=== PATIENT | male | born 2000 | race Caucasian/White ===

== ENCOUNTER 2018-02-14 21:39 | Emergency (ER) | payer BC ==
[2018-02-14 21:58] VITALS: BP 146/77
[2018-02-14] MEDS ORDERED: Lidocaine 1% 10 ML MDV INJECT ONE (22:23)
--- NOTE | 2018-02-14 22:27 | EDM.PDOC ---
ED HPI GENERAL MEDICAL PROBLEM - General Chief Complaint: Laceration Stated Complaint: RIGHT INDEX FINGER INJURIED Time Seen by Provider: 02/14/18 22:10 Source of Information: Reports: Patient History Limitations: Reports: No Limitations - History of Present Illness INITIAL COMMENTS - FREE TEXT/NARRATIVE: Patient is a 17-year-old male presents ED complaining of a laceration to the ventral aspect of the right index finger along the proximal phalanx. This measures approximately 2 cm in length. Patient states while wiping off a knife that was used to fillet fish he actually cut himself. Pain is minimal. Bleeding has subsided with direct pressure. He has no sensorimotor deficits distally. Tetanus status up-to-date. - Related Data Allergies Allergy/AdvReac Type Severity Reaction Status Date / Time shellfish derived Allergy Mild Verified 02/14/18 21:58 Sensitivity as reported by Mother Home Meds: Home Meds . [No Known Home Meds] 02/14/18 [History] Past Medical History - Past Health History Medical/Surgical History: Denies Medical/Surgical History Social & Family History - Tobacco Use Smoking Status *Q: Never Smoker - Caffeine Use Caffeine Use: Reports: Energy Drinks, Soda - Recreational Drug Use Recreational Drug Use: No ED ROS GENERAL - Review of Systems Review Of Systems: ROS reveals no pertinent complaints other than HPI. ED EXAM, SKIN/RASH Exam: See Below Exam Limited By: No Limitations General Appearance: Alert, WD/WN, No Apparent Distress Ears: Hearing Grossly Normal Nose: Normal Inspection Throat/Mouth: Normal Voice, No Airway Compromise Neck: Normal Inspection, Supple Respiratory/Chest: No Respiratory Distress, No Accessory Muscle Use Cardiovascular: Normal Peripheral Pulses, Regular Rate, Rhythm Peripheral Pulses: 4+: Radial (R) Extremities: Other (Laceration measuring 2 cm subcutaneous to the right index finger along the ventral aspect proximal phalanx. Bleeding controlled. No sensory motor deficits distally. Able to fully flex the affected finger against resistance with no discomfort.) Neurological: Alert, Oriented, CN II-XII Intact, Normal Cognition, No Motor/ Sensory Deficits Psychiatric: Normal Affect, Normal Mood Skin: Warm, Dry, Normal Color ED SKIN PROCEDURES - Laceration/Wound Repair Right Finger Lac/Wound length In cm: 2 Appearance: Subcutaneous, Clean Distal NVT: Neuro & Vascular Intact, No Tendon Injury Anesthetic Type: Local Local Anesthesia - Lidocaine (Xylocaine): 1% Plain Local Anesthetic Volume: 4cc Skin Prep: Chlorhexidine (Hibiciens), Saline, Sterile Drape Exploration/Debridement/Repair: Wound Explored, In a Bloodless Field, Explored to Base, No Foreign Material Found Closed with: Sutures Suture Size: 4-0 # of Sutures: 3 Suture Type: Prolene Drain Placement: No Sterile Dressing Applied: Nurse Tetanus Status Addressed: Yes Complications: No Course - Vital Signs Last Recorded V/S: Last Vital Signs Temp 99.1 F 02/14/18 21:55 Pulse 71 02/14/18 21:55 Resp 16 02/14/18 21:55 BP 146/77 H 02/14/18 21:55 Pulse Ox 98 02/14/18 21:55 - Orders/Labs/Meds Meds: Medications Discontinued Medications Generic Name Dose Route Start Last Admin Trade Name Eufemia PRN Reason Stop Dose Admin Lidocaine HCl 10 ml 02/14/18 22:23 Xylocaine 1% INJECT 02/14/18 22:24 ONETIME ONE - Re-Assessments/Exams Free Text/Narrative Re-Assessment/Exam: Ordered 1% lidocaine. Tetanus status is up-to-date. Laceration closed with no complications. Discharge instructions as documented. Departure - Departure Time of Disposition: 22:26 Disposition: Home, Self-Care 01 Condition: Good Clinical Impression: Finger laceration Qualifiers: Encounter type: initial encounter Finger: index finger Damage to nail status: without damage Foreign body presence: without foreign body Laterality: right Qualified Code(s): S61.210A - Laceration without foreign body of right index finger without damage to nail, initial encounter - Discharge Information Instructions: Laceration Care, Adult, [id number], Stitches, [place], or Adhesive Wound Closure, [id number] Referrals: PCP,None [Primary Care Provider] - Forms: ED Department Discharge Additional Instructions: Cleanse site twice daily with soap water, reapply Triple Antibiotic ointment, and dressing. Sutures come out in 10 days. See a provider at [facility] in [place] to have these removed for free. Keep area clean and dry. Do not soak wound. Return to the ED if you develop any new or worsening symptoms as discussed.
== END 2018-02-14 22:56 | disposition home or self-care (01) ==
LOC: JD.ED 21:39
DX: S61.210A Laceration without foreign body of right index finger without damage to nail, initial encounter (principal); W26.0XXA Contact with knife, initial encounter; Z91.013 Allergy to seafood
CPT/HCPCS: 12001; 99282-25; 99283-25

== ENCOUNTER 2020-11-01 22:40 | Emergency (ER) | payer BC ==
[2020-11-01 22:51] VITALS: BP 136/75; PULSE 80
--- NOTE | 2020-11-01 23:13 | EDM.PDOC ---
ED HPI GENERAL MEDICAL PROBLEM - General Chief Complaint: Upper Extremity Injury/Pain Stated Complaint: FISH HOOK IN FINGER Time Seen by Provider: 11/01/20 23:13 - History of Present Illness INITIAL COMMENTS - FREE TEXT/NARRATIVE: 20-year-old male presents the emergency room with a fishhook in his left thumb. Patient was cleaning out a backpack and had a fishhook stuck in it he was trying to get it out and managed catches in his thumb. Patient is uncertain of his last tetanus shot but if he had one it would have been here. Patient denies any other injury associated with this most unfortunate event. Left Finger-Thumb Pain Score (Numeric/FACES): 6 - Related Data Allergies Allergy/AdvReac Type Severity Reaction Status Date / Time shellfish derived Allergy Mild Verified 11/01/20 22:51 Sensitivity as reported by Mother Home Meds: Home Meds cephALEXin [Keflex] 500 mg PO QID #28 capsule 11/01/20 [Rx] Past Medical History - Past Health History Medical/Surgical History: Denies Medical/Surgical History - Infectious Disease History Infectious Disease History: Reports: Novel Coronavirus Social & Family History - Tobacco Use Tobacco Use Status *Q: Unknown Ever Used Tobacco - Caffeine Use Caffeine Use: Reports: Energy Drinks, Soda Review of Systems - Review of Systems Review Of Systems: See Below Constitutional: Reports: No Symptoms Mouth/Throat: Reports: Difficulty Swallowing Cardiovascular: Reports: No Symptoms GI/Abdominal: Reports: No Symptoms ED EXAM, GENERAL - Physical Exam Exam: See Below Exam Limited By: No Limitations General Appearance: Alert, No Apparent Distress Respiratory/Chest: No Respiratory Distress, Lungs Clear, Normal Breath Sounds Cardiovascular: Regular Rate, Rhythm, No Edema, No Murmur Extremities: Other (He has part of the fishhook sticking in the radial aspect of the dorsum of his distal thumb just proximal to the nail plate it was a trouble hook any cut it is close to the eye as he could.) ED TRAUMA EXTREMITY PROCEDURES - Foreign Body Removal Indication:: Patient has part of a trouble hook stuck in his left thumb Consent Obtained: Patient Performing Doctor:: Arturo Walton Foreign [facility] Other Location Comment:: Part of a treble fishhook in the dorsum radial aspect left thumb Anesthesia Other:: Digital block using 2-1/2 cc of 1% lidocaine without epinephrine Complications:: No Comments:: Unfortunately the way the fishhook was positioned it could not be advanced through however was easily rotated out backwards despite the bar being in place. Course - Vital Signs Last Recorded V/S: Last Vital Signs Temp 36.8 C 11/01/20 22:48 Pulse 80 11/01/20 22:48 Resp 16 11/01/20 22:48 BP 136/75 11/01/20 22:48 Pulse Ox 98 11/01/20 22:48 - Orders/Labs/Meds Orders: Active Orders 24 hr Category Date Time Status Vaccines to be Administered [RC] PER UNIT ROUTINE Care 11/01/20 23:25 Ordered Meds: Medications Discontinued Medications Generic Name Dose Route Start Last Admin Trade Name Freq PRN Reason Stop Dose Admin Diphtheria/Tetanus/Acell Pertussis 0.5 ml 11/01/20 23:25 Boostrix IM 11/01/20 23:26 .ONCE ONE Lidocaine HCl 10 ml 11/01/20 23:15 Xylocaine 1% INJECT 11/01/20 23:16 ONETIME ONE Departure - Departure Time of Disposition: 23:31 Disposition: Home, Self-Care 01 Clinical Impression: [place] injury to finger - Discharge Information Referrals: PCP,None [Primary Care Provider] - Forms: ED Department Discharge Additional Instructions: Return to the emergency room with any questions problems or worsening symptoms. Your tetanus was updated tonight. You were started on antibiotics take 1 4 times a day for 7 days until all gone. Your finger in warm Epson salt solution 4 times a day for 4 days. Sepsis Event Note (ED) - Evaluation Sepsis Screening Result: No Definite Risk - Focused Exam Vital Signs: Vital Signs Temp Pulse Resp BP Pulse Ox 11/01/20 22:48 36.8 C 80 16 136/75 98 - My Orders Last 24 Hours: My Active Orders 11/01/20 23:25 Vaccines to be Administered [RC] PER UNIT ROUTINE - Assessment/Plan Last 24 Hours: My Active Orders 11/01/20 23:25 Vaccines to be Administered [RC] PER UNIT ROUTINE
[2020-11-01] MEDS ORDERED: Lidocaine 1% 10 ML MDV INJECT ONE (23:15)
[2020-11-01] MEDS ORDERED: Diphtheria,Pertussis(Acell),Tetanus Vaccine 0.5 ML Syringe IM ONE (23:25)
[2020-11-01] MEDS ORDERED: Cephalexin 500 MG Cap PO ONE (23:27)
== END 2020-11-01 23:54 | disposition home or self-care (01) ==
LOC: JD.ED 22:40
DX: S60.352A Superficial foreign body of left thumb, initial encounter (principal); Z23 Encounter for immunization; Z86.16 Personal history of COVID-19; Z91.013 Allergy to seafood; W45.8XXA Other foreign body or object entering through skin, initial encounter
CPT/HCPCS: 64450; 90471; 90715; 99283; A9270; J2001